=== PATIENT | female | born 1985 | race Caucasian/White ===

== ENCOUNTER 2018-05-04 15:30 | Emergency (ER) | payer OTHER ==
[~2018-05-04] VITALS: Ht 160 cm; Wt 77.1 kg
[2018-05-04 15:54] VITALS: Ht 160 cm; Wt 77.1 kg
[2018-05-04 20:12] VITALS: BP 113/85
== END 2018-05-04 20:12 | disposition home or self-care (01) ==
LOC: ED 15:30
DX: N76.0 Acute vaginitis (principal)
CPT/HCPCS: 87491; 87591; J0696